=== PATIENT | female | born 1950 | race Caucasian/White ===

== ENCOUNTER → 2017-03-18 | Outpatient (CLI) | payer OTHER ==
[~2017-03-18] MED LIST: Norco 5-325 Ta1 EACH PO
== END | disposition home or self-care (01) ==
LOC: LAB EV 09:50
DX: N39.0 Urinary tract infection, site not specified (principal)
CPT/HCPCS: 87077; 87086; 87186

== ENCOUNTER 2021-06-29 19:38 | Emergency (ER) | payer MEDICARE ==
[~2021-06-29] VITALS: Ht 154.9 cm; Wt 79.8 kg
[2021-06-29] MEDS ORDERED: Monodox100 MG PO (20:45)
== END 2021-06-29 21:10 | disposition home or self-care (01) ==
LOC: ER 19:38
DX: L03.012 Cellulitis of left finger (principal)
CPT/HCPCS: 73140; 99283-25; A9270

== ENCOUNTER → 2024-06-21 | Outpatient (CLI) | payer MEDICARE ==
[~2024-06-21] MED LIST changes: +Monodox100 MG PO
[2024-06-21 15:59] LABS: Source, Urine Clean Catch
[2024-06-21 17:43] LABS: Appearance, Urine Cloudy (Clear); Bilirubin, Urine Neg (Neg); Blood, Urine 3+ (Neg); Color, Urine Yellow (P-Yellow); Glucose Qualitative, Urine Neg (Neg); Ketones, Urine Neg (Neg); Leukocyte Esterase, Urine 3+ (Neg); Nitrite, Urine Neg (Neg); Protein, Urine 1+ (Neg); Urobilinogen, Urine NORM (Normal)
[2024-06-21 18:03] LABS: Bacteria Mod /hpf; Squamous Epithelial Cells Few /hpf (Few); White Blood Cells, Urine 25-50 /hpf (0-5)
== END ==
LOC: LAB SHORT 15:58 → LAB 15:58 → LAB FUT 06-11 09:10 → EDSTATUS 06-11 09:10
PROVIDERS: Nurse Practitioner Family
DX: N39.0 Urinary tract infection, site not specified (principal)
CPT/HCPCS: 81001; 87086